=== PATIENT | female | born 1965 | race Caucasian/White ===

== ENCOUNTER 2017-06-28 20:36 | Emergency (ER) | payer MEDICAID, OTHER, SELFPAY ==
[~2017-06-28] VITALS: Ht 177.8 cm; Wt 131.0 kg
[2017-06-28] MEDS ORDERED: ALBUTEROL/IPRATROPIUM 2.5MG/0.5MG, 3 ML NPPB ONE (23:00)
[2017-06-28] MEDS ORDERED: ONDANSETRON ODT 8 MG PO ONE (23:00)
[2017-06-28 23:21] LABS: HEMATOCRIT 46.6 % (34.6-47.8); HEMOGLOBIN 15.9 g/dL (11.7-16.4); WHITE BLOOD COUNT 8.9 x10^3/uL (3.4-10)
[2017-06-28 23:28] LABS: ASPARTATE AMINO TRANSFERASE 12 U/L (15-37); BLOOD UREA NITROGEN 14 mg/dL (7-18)
[2017-06-28 23:33] LABS: IS PT STATUS REG ER OR PRE ER? YES
[2017-06-29] VITALS: BP 153/90
== END 2017-06-29 00:20 | disposition home or self-care (01) ==
LOC: ED 23:59
DX: J20.9 Acute bronchitis, unspecified (principal)
CPT/HCPCS: 36415; 71020; 80053; 83880; 84484; 85025; 93005; 94640; 99285